=== PATIENT | male | born 1950 | race Caucasian/White ===

== ENCOUNTER 2017-08-08 06:48 | Emergency (ER) | payer OTHER, BC ==
[~2017-08-08] VITALS: Ht 172.7 cm; Wt 76.8 kg
[2017-08-08 07:33] LABS: BASOPHIL (%) 0.5 % (0-1); BASOPHIL COUNT 0.1 K/uL (0-0.1); EOSINOPHIL (%) 2.3 % (0-5); EOSINOPHIL COUNT 0.3 K/uL (0-0.3); HEMATOCRIT 46.4 % (38.0-50.0); HEMOGLOBIN 15.5 G/DL (12.5-16.6); IMMATURE GRANULOCYTE (%) 1.1 % (0.0-0.7); LYMPHOCYTE (%) 24.9 % (15-42); LYMPHOCYTE COUNT 2.8 K/uL (1.0-2.8); MCHC 33.4 G/DL (30.0-36.0); MCV 89.9 FL (86-99); MONOCYTE (%) 6.4 % (3-12); MONOCYTE COUNT 0.7 K/uL (0-0.8); NEUTROPHIL (%) 64.8 % (45-76); NEUTROPHIL COUNT 7.2 K/uL (1.8-6.4); PLATELET COUNT 239 K/uL (156-360); RBC DIS.WIDTH-CV 12.8 % (11.8-14.6); RBC DIS.WIDTH-SD 42.2 % (39-53); RED BLOOD COUNT 5.16 M/uL (4.00-5.50); WHITE BLOOD COUNT 11.1 K/uL (4.1-10.2)
[2017-08-08 08:07] LABS: CHLORIDE 106 MEQ/L (99-109); GFR ESTIMATE (CALCULATED) > 59 mL/min/ (58.99-99999); GLUCOSE 119 mg/dL (70-99); POTASSIUM 4.6 MEQ/L (3.7-5.4); SODIUM 141 MEQ/L (136-147); UREA NITROGEN (BUN) 15 mg/dL (9-23)
[2017-08-08 08:08] LABS: TROP-I INTERPRETATION NEGATIVE; TROPONIN-I 0.01 ng/mL (0.0-0.30)
[2017-08-08 09:46] VITALS: BP 107/70
== END 2017-08-08 09:51 | disposition home or self-care (01) ==
LOC: EME 06:48
PROVIDERS: Emergency Medicine
DX: R00.2 Palpitations (principal); R07.9 Chest pain, unspecified; Z85.828 Personal history of other malignant neoplasm of skin
CPT/HCPCS: 71045; 80048; 84484; 85025; 93005; 99281; 99284